=== PATIENT | female | born 1945 | race Caucasian/White ===

== ENCOUNTER → 2025-09-20 | Outpatient (CLI) | payer MEDICARE, SELFPAY ==
--- NOTE | 2025-09-20 16:00 | XR_ITS ---
Examination: Carotid arterial duplex scan, ultrasound. 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 Systolic diastolic ratios have been calculated. Findings: Right peak systolic velocities: Distal internal carotid artery peak systolic velocity is 1.5 M/sec Proximal internal carotid artery peak systolic velocity is 1.3 M/sec Carotid bifurcation peak systolic velocity is 0.6 M/sec External carotid artery peak systolic velocity is 1.2 M/sec Vertebral artery flow is antegrade. Left peak systolic velocities: Distal internal carotid artery peak systolic velocity is 1.2 M/sec Proximal internal carotid artery peak systolic velocity is 1.9 M/sec Carotid bifurcation peak systolic velocity is 0.9 M/sec External carotid artery peak systolic velocity is 1.6 M/sec Vertebral artery flow is antegrade Doppler waveform analysis demonstrates spectral broadening bilaterally Impression: Right internal carotid artery demonstrates 40 to 60% stenosis. Left internal carotid artery demonstrates 30 to 50% stenosis.
== END | disposition home or self-care (01) ==
LOC: CDIM 15:33
PROVIDERS: Referring Provider Psychiatry & Neurology Neurology; Visit Provider Psychiatry & Neurology Neurology
DX: I65.23 Occlusion and stenosis of bilateral carotid arteries (principal)
CPT/HCPCS: 93880